=== PATIENT | male | born 1975 | race Caucasian/White ===

== ENCOUNTER 2024-04-06 08:50 | Emergency (ER) | payer OTHER ==
[~2024-04-06] VITALS: Ht 162.6 cm; Wt 72.6 kg
[2024-04-06 09:00] VITALS: BP_SYST 148; PULSE 85; RESP 22; TEMP 99.1; O2SAT 98
[2024-04-06] MEDS: NACL 0.9% 1,000 ML IV ONE (09:22)
[2024-04-06 09:30] LABS: BASOPHILS % (AUTO) 0.2 % (0.0-2.0); EOSINOPHILS % (AUTO) 0.1 % (0.0-4.0); HEMATOCRIT 44.4 % (36-54); LYMPHOCYTES # (AUTO) 0.9 K/uL (1.0-5.5); MEAN CORPUSCULAR HEMOGLOBIN 30 pg (27-31); MEAN CORPUSCULAR HGB CONC 34 % (32-36); MEAN CORPUSCULAR VOLUME 89 fL (79.0-98.0); MONOCYTES # (AUTO) 0.4 K/uL (0.0-1.0); MONOCYTES % (AUTO) 6.1 % (1.7-9.3); NEUTROPHILS # (AUTO) 4.9 K/uL (1.8-7.7); NEUTROPHILS % (AUTO) 79.6 % (40.0-70.0); PLATELET COUNT (AUTO) 83 K/uL (130-430); RED CELL DISTRIBUTION WIDTH 13.6 % (9.0-15.0); WHITE BLOOD COUNT (AUTO) 6.2 K/uL (4.8-10.8)
[2024-04-06 10:04] LABS: PROTHROMBIN TIME 10.5 SECS (9.5-12.5)
[2024-04-06 10:06] LABS: ALANINE AMINOTRANSFERASE 106 U/L (12-78); ALBUMIN 3.1 g/dL (3.4-4.8); ANION GAP 9 (5-15); ASPARTATE AMINOTRANSFERASE 73 U/L (10-37); CALCIUM 8.3 mg/dL (8.4-11.0); CARBON DIOXIDE 24 mmol/L (23-29); CHLORIDE 101 mmol/L (98-107); CREATININE 1.07 mg/dL (0.55-1.30); GFR AFRICAN AMERICAN 94 mL/min (>90); GLUCOSE 110 mg/dL (74-106); POTASSIUM 3.8 mmol/L (3.5-5.1); SODIUM SERUM 134 mmol/L (136-145); TOTAL PROTEIN, SERUM 7.1 g/dL (6.4-8.3); UREA NITROGEN, BLOOD 11 mg/dL (8-21)
[2024-04-06 10:09] LABS: BILIRUBIN,URINE NEGATIVE (NEGATIVE); BLOOD, URINE 2+ (NEGATIVE); CLARITY/URINE CLEAR (CLEAR); COLOR,URINE YELLOW (YELLOW); GLUCOSE,URINE TRACE (NEGATIVE); KETONES,URINE 1+ (NEGATIVE); LEUKOCYTE ESTERASE ,URINE NEGATIVE (NEGATIVE); NITRITE, URINE NEGATIVE (NEGATIVE); PROTEIN URINE 1+ (NEGATIVE)
[2024-04-06 10:14] LABS: BILIRUBIN,DIRECT 0.3 mg/dL (0.0-0.3); CREATINE KINASE, TOTAL 133 U/L (39-308)
[2024-04-06 10:15] LABS: GFR NON AFRICAN-AMERICAN 78 mL/min (>90)
[2024-04-06 10:32] LABS: UROBILINOGEN,URINE >=8 (0.2-1.0)
[2024-04-06 10:33] LABS: BACTERIA,URINE None Seen /HPF (None Seen); WBC,URINE 0-3 /HPF (0-3)
[2024-04-06] MEDS: DIPHENHYDRAMINE INJ 50 MG/ML VIAL IVP ONE (10:55)
[2024-04-06] MEDS: METOCLOPRAMIDE HCL 10 MG/2 ML VIAL IVP ONE (10:56)
[2024-04-06] MEDS ORDERED: ONDA-8 TL (11:25)
[2024-04-06] MEDS ORDERED: IBUP-1971 PO (11:25)
[2024-04-06 11:50] VITALS: BP_SYST 148; PULSE 85; RESP 22; TEMP 99.1; O2SAT 98
== END 2024-04-06 11:49 | disposition home or self-care (01) ==
LOC: SED 08:50
DX: R51.9 Headache, unspecified (principal); R11.10 Vomiting, unspecified; R19.7 Diarrhea, unspecified; R53.1 Weakness; R50.9 Fever, unspecified; R03.0 Elevated blood-pressure reading, without diagnosis of hypertension
CPT/HCPCS: 99285; 96374; 70450; 71045; 96361; 96375; 80076; 80048; 81001; 82550; 85025; 85610; 85651; 85730; 84484; 36415; 93005; 83605; 82397; J1200; J2765; J7030; 81000; 81015